=== PATIENT | female | born 1985 | race African-American/Black ===

== ENCOUNTER 2017-02-28 18:36 | Emergency (ER) | payer SELFPAY ==
[~2017-02-28] VITALS: Ht 180.3 cm; Wt 75.3 kg
[2017-02-28 18:40] VITALS: BP 142/105
[2017-02-28] MEDS ORDERED: ULTRAM50 MG PO (20:35)
== END 2017-02-28 20:38 | disposition home or self-care (01) ==
LOC: EME 18:36
DX: S43.101A Unspecified dislocation of right acromioclavicular joint, initial encounter (principal); W20.8XXA Other cause of strike by thrown, projected or falling object, initial encounter; Y92.008 Other place in unspecified non-institutional (private) residence as the place of occurrence of the external cause
CPT/HCPCS: 71046